=== PATIENT | male | born 1945 | race Caucasian/White ===

== ENCOUNTER 2016-12-24 08:05 | Emergency (ER) | payer MEDICARE, OTHER ==
--- NOTE | 2016-12-24 08:20 | C.PDOC ---
History Of Present Illness 71-year-old male, presents to the emergency department with complaints of chest pain. Patient states he developed anterior chest pain this morning, while police were arresting his son. Pain lasted a few hours, non-radiating and has now subsided. Patient states the pain is similar to when he had a stent placed 10 years ago. Denies shortness of breath, dizziness, nausea/vomiting, arm pain, leg pain/swelling, headache, or any other associated symptoms. No other complaints at this time. Time Seen by Provider: 12/24/16 08:07 Chief Complaint (Nursing): Chest Pain History Per: Patient History/Exam Limitations: no limitations Onset/Duration Of Symptoms: Hrs Current Symptoms Are (Timing): Better Severity: Moderate Past Medical History Reviewed: Historical Data, Nursing Documentation, Vital Signs Vital Signs: Last Vital Signs Temp 98.9 F 12/24/16 10:42 Pulse 68 12/24/16 10:42 Resp 16 12/24/16 10:42 BP 160/70 H 12/24/16 10:42 Pulse Ox 98 12/24/16 10:42 Family History: States: Unknown Family Hx - Social History Hx Tobacco Use: No Hx Alcohol Use: No Hx Substance Use: No - Immunization History Hx Influenza Vaccination: Yes Hx Pneumococcal Vaccination: Yes Review Of Systems Except As Marked, All Systems Reviewed And Found Negative. Constitutional: Negative for: Fever, Chills Cardiovascular: Positive for: Chest Pain. Negative for: Palpitations, Edema, Light Headedness Respiratory: Negative for: Shortness of Breath, SOB with Excertion Gastrointestinal: Negative for: Nausea, Vomiting Musculoskeletal: Negative for: Neck Pain, Arm Pain, Back Pain Skin: Negative for: Rash Neurological: Negative for: Weakness, Numbness, Headache, Dizziness Physical Exam - Physical Exam Appears: Non-toxic, No Acute Distress Skin: Warm, Dry, No Rash Head: Atraumatic, Normacephalic Eye(s): bilateral: Normal Inspection, PERRL, EOMI Nose: Normal Oral Mucosa: Moist Lips: Normal Appearing Neck: Normal ROM Chest: Symmetrical Cardiovascular: Rhythm Regular Respiratory: Normal Breath Sounds, No Accessory Muscle Use Gastrointestinal/Abdominal: Soft, No Tenderness Extremity: Normal ROM Neurological/Psych: Oriented x3, Normal Speech ED Course And Treatment - Laboratory Results Result Diagrams: 12/24/16 09:31 12/24/16 09:31 ECG: Interpreted By Me, Viewed By Me ECG Rhythm: Sinus Rhythm, R BBB ECG Interpretation: No Acute Changes Interpretation Of ECG: LAD. NSTEMI Rate From EC - Radiology CXR: Viewed By Me, Read By Radiologist CXR Interpretation: Yes: No Acute Disease Medical Decision Making Medical Decision Makin I disc results w the pt and I recommended that he be admitted for further evaluation of his heart. I disc his increased risk of heart attack and given his cardiac hx, however he is adamant that he does not wish to stay even given these risks. Disposition - Disposition Disposition: AGAINST MEDICAL ADVICE Disposition Time: 10:23 Condition: STABLE Additional Instructions: Please follow up with your doctor. Return to the ER for any worsening symptoms or for any other concerns. Instructions: Chest Pain (ED) Forms: Gen Discharge Inst Swazi Print Language: MOSOTHO - Clinical Impression Clinical Impression: Chest pain - Scribe Statement The provider has reviewed the documentation as recorded by the Anisa Xiao All medical record entries made by the Dennisibe were at my direction and personally dictated by me. I have reviewed the chart and agree that the record accurately reflects my personal performance of the history, physical exam, medical decision making, and the department course for this patient. I have also personally directed, reviewed, and agree with the discharge instructions and disposition.
--- NOTE | 2016-12-24 09:06 | RAD ---
HISTORY: cp COMPARISON: 05/23/2013 FINDINGS: LUNGS: No focal airspace opacity. PLEURA: No significant pleural effusion identified, no pneumothorax apparent.Biapical pleural parenchymal thickening noted. CARDIOVASCULAR: Normal. OSSEOUS STRUCTURES: The osseous structures demonstrate degenerative changes. VISUALIZED UPPER ABDOMEN: Upper abdomen is suboptimally evaluated. OTHER FINDINGS: None. IMPRESSION: No focal airspace opacity.
[2016-12-24 09:37] LABS: BASO # 0.1 K/uL (0.0-0.2); BASO % 0.8 % (0.0-2.0); EOS # 0.3 K/uL (0.0-0.7); EOS % 3.3 % (0.0-4.0); HEMATOCRIT 41.2 % (35.0-51.0); LYMPH # 1.3 K/uL (1.0-4.3); LYMPH % 15.4 % (20.0-40.0); MEAN CELL VOLUME 90.6 fL (80.0-94.0); MEAN CORPUSCULAR HEMOGLOBIN 29.7 pg (27.0-31.0); MEAN CORPUSCULAR HGB CONC 32.8 g/dL (33.0-37.0); MEAN PLATELET VOLUME 10.4 fL (7.2-11.7); MONO # 0.5 K/uL (0.0-0.8); MONO % 6.2 % (0.0-10.0); RED CELL DISTRIBUTION WIDTH 14.3 % (11.5-14.5); WHITE BLOOD COUNT 8.5 K/uL (4.8-10.8)
[2016-12-24 09:44] LABS: CHLORIDE 100 mmol/L (98-107)
[2016-12-24 09:45] LABS: POTASSIUM 3.5 mmol/L (3.6-5.2); SODIUM 141 mmol/L (132-148)
[2016-12-24 09:46] VITALS: RESP 16; O2SAT 98
[2016-12-24 09:47] LABS: GFR AFRICAN-AMERICAN > 60
[2016-12-24 09:48] LABS: ALB/GLOB RATIO 1.3 (1.0-2.1); ALKALINE PHOSPHATASE 61 U/L (38-126); ALT/SGPT 20 U/L (21-72); AST/SGOT 22 U/L (17-59); BILIRUBIN,TOTAL 0.6 mg/dL (0.2-1.3); BLOOD UREA NITROGEN 12 mg/dL (9-20); CALCIUM 8.6 mg/dl (8.6-10.4); CARBON DIOXIDE 27 mmol/L (22-30); GLUCOSE,RANDOM 119 mg/dL (75-110); TOTAL PROTEIN 6.8 g/dL (6.3-8.3)
[2016-12-24 10:43] VITALS: BP 160/70; PULSE 68; TEMP 98.9
== END 2016-12-24 10:43 | disposition left against medical advice (07) ==
LOC: C.ER 08:05
DX: R07.9 Chest pain, unspecified (principal)

== ENCOUNTER 2018-06-19 09:03 | Emergency (ER) | payer OTHER ==
[2018-06-19 09:19] VITALS: BP 167/84; PULSE 64; RESP 18; TEMP 98.5; O2SAT 99
--- NOTE | 2018-06-19 09:35 | C.PDOC ---
History Of Present Illness 73 year old male presents to ED for evaluation of itching, red rash on his nose for the last 3-4 months. Describes itching as a burning sensation. States he has seen PMD and was instructed to use "herban skin cream" to alleviate itching but has not seen any improvements. Patient has not seen a soloist dancer. Denies vomiting, diarrhea, fever, and other associated symptoms. Time Seen by Provider: 06/19/18 09:21 Chief Complaint (Nursing): Abnormal Skin Integrity History Per: Patient History/Exam Limitations: no limitations Onset/Duration Of Symptoms: Days Current Symptoms Are (Timing): Still Present Past Medical History Reviewed: Historical Data, Nursing Documentation, Vital Signs Vital Signs: Last Vital Signs Temp 98.5 F 06/19/18 09:13 Pulse 64 06/19/18 09:13 Resp 18 06/19/18 09:13 BP 167/84 H 06/19/18 09:13 Pulse Ox 99 06/19/18 11:38 - Medical History PMH: Asthma, COPD Surgical History: Back Surgery Family History: States: Unknown Family Hx - Social History Hx Tobacco Use: No Hx Alcohol Use: No Hx Substance Use: No - Immunization History Hx Tetanus Toxoid Vaccination: No Hx Influenza Vaccination: Yes Hx Pneumococcal Vaccination: Yes Review Of Systems Constitutional: Negative for: Fever, Chills Gastrointestinal: Negative for: Nausea, Vomiting Skin: Positive for: Rash (red rash on nose ) Physical Exam - Physical Exam Appears: Non-toxic, No Acute Distress, Other (Comfortable) Skin: Warm, Dry Head: Atraumatic, Normacephalic Eye(s): bilateral: Normal Inspection, PERRL, EOMI Nose: No Discharge, No Deformity, No Tenderness, Other (erythema of the nose and medial cheek with excoriation at the nasal labial folds) Tongue: Normal Appearing Lips: Normal Appearing, Other (nontender ) Chest: Symmetrical Cardiovascular: Rhythm Regular Respiratory: Normal Breath Sounds, No Rales, No Rhonchi, No Stridor Neurological/Psych: Oriented x3, Normal Speech Gait: Steady ED Course And Treatment O2 Sat by Pulse Oximetry: 99 (RA) Pulse Ox Interpretation: Normal Progress Note: Progress: Given Loraradine. Patient stable for discharge home. Prescribed Loratadine and Metrogel. Instructed to follow up with a soloist dancer and given contact information for local dermatologists. Disposition Counseled Patient/Family Regarding: Diagnosis, Need For Followup, Rx Given - Disposition Referrals: [facility] [Outside] Disposition: HOME/ ROUTINE Disposition Time: 09:40 Condition: STABLE Additional Instructions: YOU NEED TO FOLLOW UP WITH DERMATOLOGY WITHIN 1 WEEK USE MEDICATIONS DIRECTED RETURN TO EMERGENCY ROOM IF SYMPTOMS WORSEN Prescriptions: Loratadine [Claritin] 10 mg PO DAILY PRN #30 tab PRN Reason: Itching / Pruritus Metronidazole [Metrogel] 1 appl TP DAILY #1 gel..gram. Instructions: Rosacea, Skin Rash (DC) Forms: [employer] (Lithuanian) Print Language: VIETNAMESE - Clinical Impression Clinical Impression: Facial rash, Rosacea - Scribe Statement The provider has reviewed the documentation as recorded by the Scribe (Angelika Ellington) Provider Attestation: All medical record entries made by the Scribe were at my direction and personally dictated by me. I have reviewed the chart and agree that the record accurately reflects my personal performance of the history, physical exam, medical decision making, and the department course for this patient. I have also personally directed, reviewed, and agree with the discharge instructions and disposition.
== END 2018-06-19 09:48 | disposition home or self-care (01) ==
LOC: C.ER 09:03
DX: R21 Rash and other nonspecific skin eruption (principal); L71.9 Rosacea, unspecified; J44.9 Chronic obstructive pulmonary disease, unspecified